=== PATIENT | male | born 1990 | race African-American/Black ===

== ENCOUNTER 2017-08-22 07:56 | Emergency (ER) | payer SELFPAY ==
[~2017-08-22 07:56] MED LIST: CEPH500C3 PO
[2017-08-22 08:01] VITALS: BP 132/84; PULSE 74; RESP 18; TEMP 99.2; O2SAT 97
[2017-08-22] MEDS ORDERED: PENICILLIN V POTASSIUM 500 MG TAB PO ONE (08:15)
[2017-08-22] MEDS ORDERED: KETOROLAC TROMETHAMINE 60 MG/2 ML (IM) VIAL IM ONE (08:15)
[2017-08-22] MEDS ORDERED: IBUP1TAB7 PO (08:17)
[2017-08-22] MEDS ORDERED: PENI500T PO (08:17)
[2017-08-22] MEDS ORDERED: MAGICADU2 SWISH-SPIT (08:17)
[2017-08-22] MEDS ORDERED: MAPA500T13 PO (08:17)
--- NOTE | 2017-08-22 08:20 | PD ---
HPI Chief Complaint: Oral / Dental Pain or Problem Time Seen by Provider: 08:08 Travel History International Travel<30 days: No Contact w/Intl Traveler<30days: No Traveled to known affect area: No History of Present Illness HPI 27-year-old -Congol[place] male presents emergency department with several day history of worsening left lower jaw pain and swelling. He knows he has a bad tooth. He denies fever, chills, difficulty swallowing, or other symptoms. Pain is 10 out of 10. He states he has been using Orajel, ibuprofen, and Tylenol without relief. He has no known drug allergies. PFSH Past Medical History Diminished Hearing: No Genitourinary: Yes (PAST EPISODES OF SCROTAL SWELLING) Psychiatric: Yes (MOOD DISORDER PER ED) Past Surgical History Other Surgery: Yes (MULTIPLE SKIN GRAFTS S/P ESPRAZA ON LT ARM) Social History Alcohol Use: Yes Tobacco Use: Yes (OCCAS) Substance Use: No Allergies-Medications (Allergen,Severity, Reaction): Coded Allergies: No Known Allergies (Verified Adverse Reaction, Unknown, 08/22/17) Reported Meds & Prescriptions Reported Meds & Active Scripts Active Magic Mouthwash Adult Liq (Multi-Ingredient Mouthwash/Gargle) 120 Ml Susp 10 Ml SWISH-SPIT ACHS Each 5mL contains: Nystatin 200,000units, Diphenhydramine 4.25mg, Viscous Lidocaine 10mg, [place] syrup 0.8 mL Mapap Extra Strength (Acetaminophen) 500 Mg Tab 1,000 Mg PO Q6HR PRN Ibuprofen 800 Mg Tab 800 Mg PO Q8H PRN Penicillin V Potassium 500 Mg Tab 500 Mg PO Q6H 10 Days Keflex (Cephalexin Monohydrate) 500 Mg Cap 500 Mg PO Q8 7 Days Review of Systems Except as stated in HPI: all other systems reviewed are Neg General / Constitutional: No: Fever Eyes: No: Visual changes HENT: Positive: Dental Difficulties, No: Headaches Cardiovascular: No: Chest Pain or Discomfort Respiratory: No: Shortness of Breath Gastrointestinal: No: Abdominal Pain Genitourinary: No: Dysuria Musculoskeletal: No: Pain Skin: No Rash Neurologic: No: Weakness Psychiatric: No: Depression Endocrine: No: Polydipsia Hematologic/Lymphatic: No: Easy Bruising Physical Exam Narrative GENERAL: Patient appears in mild to moderate distress. HEAD: Atraumatic. Normocephalic. Mild swelling to the left lower jaw. EYES: Pupils equal and round. No scleral icterus. No injection or drainage. ENT: No nasal bleeding or discharge. Mucous membranes pink and moist. Patient has obvious caries in the #32 tooth, with sensitivity and localized swelling, but without significant abscess. Pharynx is normal. Airways patent. TMs are clear bilaterally. NECK: Trachea midline. Supple and nontender. CARDIOVASCULAR: Regular rate and rhythm. RESPIRATORY: No accessory muscle use. Clear to auscultation. Breath sounds equal bilaterally. MUSCULOSKELETAL: Extremities without clubbing, cyanosis, or edema. No obvious deformities. NEUROLOGICAL: Awake and alert. No obvious cranial nerve deficits. Motor grossly within normal limits. Five out of 5 muscle strength in the arms and legs. Normal speech. PSYCHIATRIC: Appropriate mood and affect; insight and judgment normal. Data Data Last Documented VS Vital Signs Date Time Temp Pulse Resp B/P (MAP) Pulse Ox O2 Delivery O2 Flow Rate FiO2 08/22/17 08:01 99.2 74 18 132/84 (100) 97 Orders Orders Ketorolac Inj (Toradol Inj) (08/22/17 08:15) Penicillin V Potassium (Veetids) (08/22/17 08:15) MDM Medical Decision Making Medical Screen Exam Complete: Yes Emergency Medical Condition: Yes Medical Record Reviewed: Yes Differential Diagnosis Dental caries. Dental abscess. Dental pain. Narrative Course Patient is medically stable at time of exam. Patient received 1000 mg Pen-Vee K p.o. now. Patient is given Toradol 60 mg IM. Patient continued on Pen-Vee K 500 mg 4 times daily 10 days. Patient is given ibuprofen 800 mg 3 times daily #30. Patient is given Mapap 500 mg 2 tabs every 6 hours as needed #60. Patient to follow-up with dental resources as soon as possible. Diagnosis Primary Impression: Dental abscess Patient Instructions: Dental Abscess (ED), General Instructions Additional Instructions: Patient received 1000 mg Pen-Vee K p.o. now. Patient is given Toradol 60 mg IM. Patient continued on Pen-Vee K 500 mg 4 times daily 10 days. Patient is given ibuprofen 800 mg 3 times daily #30. Patient is given Mapap 500 mg 2 tabs every 6 hours as needed #60. Patient to follow-up with dental resources as soon as possible. Med/Other Pt SpecificInfo: Prescription(s) given Scripts Nkslgdyx-Timjduzqumvksnc-Bhrpawozz Liq (Magic Mouthwash Adult Liq) 120 Ml Susp 10 ML SWISH-SPIT ACHS for Mouth sores, #120 ML 1 Refill Each 5mL contains: Nystatin 200,000units, Diphenhydramine 4.25mg, Viscous Lidocaine 10mg, [place] syrup 0.8 mL Prov: Sergio Weeks MD 08/22/17 Acetaminophen (Mapap Extra Strength) 500 Mg Tab 1000 MG PO Q6HR Y for PAIN, #60 TAB 0 Refills Prov: Sergio Weeks MD 08/22/17 Ibuprofen (Ibuprofen) 800 Mg Tab 800 MG PO Q8H Y for Pain/Inflammation, #60 TAB 0 Refills Prov: Sergio Weeks MD 08/22/17 Penicillin V Potassium (Penicillin V Potassium) 500 Mg Tab 500 MG PO Q6H for Infection for 10 Days, #40 TAB 0 Refills Prov: Sergio Weeks MD 08/22/17 Disposition: 01 DISCHARGE HOME Condition: Stable Elmer Mariee Aug 22, 2017 08:20
[2017-08-22 09:50] VITALS: BP 123/67
== END 2017-08-22 08:45 | disposition home or self-care (01) ==
LOC: NEPD 07:56
DX: K04.7 Periapical abscess without sinus (principal); F39 Unspecified mood [affective] disorder; Z72.0 Tobacco use
CPT/HCPCS: 96372; 99283; J1885

== ENCOUNTER 2017-09-26 01:06 | Emergency (ER) | payer SELFPAY ==
[~2017-09-26] VITALS: Ht 172.7 cm; Wt 87.0 kg
[~2017-09-26 01:06] MED LIST changes: +IBUP1TAB7 PO; +MAGICADU2 SWISH-SPIT; +MAPA500T13 PO; +PENI500T PO
[2017-09-26 01:18] VITALS: BP 123/74; PULSE 97; RESP 16; TEMP 98.2; O2SAT 98
[2017-09-26] MEDS ORDERED: oxyCODONE/ACETAMINOPHEN 5 MG/325 MG TAB PO ONE (02:00)
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
[2017-09-26] MEDS ORDERED: IBUP1TAB7 PO (04:00)
[2017-09-26] MEDS ORDERED: CYCL10TA PO (04:00)
[2017-09-26] MEDS ORDERED: IBUPROFEN 800 MG TAB PO ONE (04:15)
[2017-09-26] MEDS ORDERED: CYCLOBENZAPRINE HCL 10 MG TAB PO ONE (04:15)
== END 2017-09-26 04:16 | disposition home or self-care (01) ==
LOC: NEPD 01:06
DX: M25.511 Pain in right shoulder (principal); R51 Headache; M54.9 Dorsalgia, unspecified; Y09 Assault by unspecified means; F39 Unspecified mood [affective] disorder
CPT/HCPCS: 70450; 71045; 72125; 73030; 99284